=== PATIENT | female | born 1985 | race Caucasian/White ===

== ENCOUNTER 2018-09-12 11:08 | Emergency (ER) | payer OTHER ==
[~2018-09-12] VITALS: Ht 167.6 cm; Wt 105.1 kg
[~2018-09-12 11:08] MED LIST: GUAI473L22 PO; IBUP-1542 PO; NPH10OT LEFT EAR; PREN-39 PO; SODI126M NASAL
[2018-09-12 11:10] VITALS: BP 121/67; PULSE 88; RESP 18; Ht 167.6 cm; Wt 105.1 kg
[2018-09-12] MEDS ORDERED: NAPR-683 PO (13:01)
[2018-09-12] MEDS ORDERED: ACET-141 PO (13:01)
[2018-09-12] MEDS ORDERED: FLUT9.9S NASAL (13:01)
--- NOTE | 2018-09-12 13:15 | ERD ---
ER Documentation Chief Complaint Chief Complaint HEADACHE & NOSE PAIN X3 WKS HPI 32-year-old female presents for headache x3 weeks. She also states that she has nose pain. She has a history of nose injury and states that she was told that she may have nasal issues in the future. She does state that she has nasal stuffiness. She is currently taking saline nasal spray with mild relief. The headache is noted to be in the frontal right side, rated 8 out of 10, intermittent, described as a sharp sensation, nonradiating. She has had prior similar headaches in the past. She has been taking Aleve with mild relief. She denies fevers or chills. She does admit to nausea but no vomiting. Denies chest pain or shortness of breath. No significant past medical history. No other modifying factors noted, no other treatment tried at home. ROS All systems reviewed and are negative except as per history of present illness. Medications Home Meds Active Scripts Fluticasone Propionate (Flonase Allergy Relief) 9.9 Ml [place].susp, 1 SPRAY NASAL DAILY PRN for NASAL CONGESTION, #1 BOTTLE TO EACH NOSTRIL Prov:GALLO BUCKLEY DO 09/12/18 Acetaminophen* (Acetaminophen*) 500 MG Extra Strength Tablet, 500 MG PO Q4H PRN for PAIN AND OR ELEVATED TEMP, #30 TAB Prov:GALLO BUCKLEY DO 09/12/18 Naproxen* (Naproxen*) 250 Mg Tablet, 250 MG PO BID PRN for PAIN, #30 TAB Prov:GALLO BUCKLEY DO 09/12/18 Sodium Chloride (Saline Nasal Mist) 126 Ml Mist, 2 SPRAY NASAL Q2H PRN for NASAL CONGESTION, #1 BOTTLE Prov:ANN AMAYA NP 04/15/16 Guaifenesin-Codeine Phosphate* (Guaifenesin* AC Cough Syrup) 473 Ml Liquid, 10 ML PO Q4H PRN for COUGH, #120 ML Prov:ANN AMAYA NP 04/15/16 Sodium Chloride (Saline Nasal Mist) 126 Ml Mist, 2 SPRAY NASAL Q2H PRN for NASAL CONGESTION, #1 BOTTLE Prov:ANN AMAYA NP 04/15/16 Ibuprofen* (Ibuprofen*) 600 Mg Tablet, 600 MG PO Q6H PRN for pa, #30 TAB Prov:DOMENICA DONALDSON NP 02/26/15 Neomycin/Polymyxin/Hydrocort* (Cortisporin* Otic) 10 Ml Susp, 4 DROP LEFT EAR QID for 7 Days, EA Prov:DOMENICA DONALDSON ROGERS TDeidra CAVANAUGH 02/26/15 Reported Medications [none] Unknown Strength No Conflict Check 02/26/15 Vits W-Ca,Fe,Fa(<1MG) ( Vitamins) 1 Tab Tablet, 1 TAB PO DAILY 08/03/14 Allergies Allergies: Coded Allergies: No Known Allergy (Unverified , 04/15/16) PMhx/Soc History of Surgery: Yes (GALLBLADDER) Anesthesia Reaction: No Hx Neurological Disorder: No Hx Respiratory Disorders: No Hx Cardiac Disorders: No Hx Psychiatric Problems: No Hx Miscellaneous Medical Probl: No Hx Alcohol Use: No Hx Substance Use: No Hx Tobacco Use: No FmHx Family History: No coronary disease Physical Exam Vitals Vital Signs Date Temp Pulse Resp B/P (MAP) Pulse Ox O2 O2 Flow FiO2 Time Delivery Rate 09/12/18 98.2 88 18 121/67 96 11:10 (85) Physical Exam Const: No acute distress Head: Atraumatic, no temporal area tenderness to palpation there was some tenderness palpation of the right sinus area as well as the paranasal sinus Eyes: Normal Conjunctiva, pupils equal, round, reactive to light bilaterally ENT: Normal External Ears, bilateral tympanic membrane intact without erythema or bulging noted, Nose and Mouth examination normal. No tonsillar swelling or exudate noted Neck: Full range of motion. No meningismus, no bruits noted Resp: Clear to auscultation bilaterally Cardio: Regular rate and rhythm, no murmurs, bilateral radial and dorsalis pedis pulses intact Skin: No petechiae or rashes Ext: No cyanosis, or edema, 5 out of 5 muscular bilateral upper and lower extremities Neur: Awake and alert, bilateral upper and lower extremity sensation intact Psych: Normal Mood and Affect Procedures/MDM Medical Decision Making: Differential diagnosis includes but not limited to primary headache, subarachnoid hemorrhage, meningitis, temporal arteritis, glaucoma, hypertension, cerebral ischemia, carotid or vertebral arterial dissection, brain tumor. Patient appeared well on physical examination, nontoxic appearing. No history of fever. There is low suspicion for meningitis. Given no temporal area tenderness to palpation, low suspicion for temporal arteritis. Patient has no vision changes and pupils are reactive bilaterally, low suspicion for glaucoma. There is also no focal neurologic deficits to suggest a brain tumor. Patient has normal sensation and muscle strength, low suspicion for cerebral ischemia. Given tenderness palpation of the frontal sinuses and paranasal sinus there is a possibility that the patient has a sinus headache Patient given prescription for supportive medication(s). Patient advised to follow up with PCP in 1-2 days. Patient advised to return to ED for new or worsening symptoms. Patient stable on discharge from the ED. Disclaimer: Inadvertent spelling and grammatical errors are likely due to EHR/ dictation software use and do not reflect on the overall quality of patient care. Also, please note that the electronic time recorded on this note does not necessarily reflect the actual time of the patient encounter. Departure Diagnosis: Primary Impression: Headache Headache type: unspecified Headache chronicity pattern: unspecified pattern Intractability: not intractable Qualified Codes: R51 - Headache Additional Impression: Sinus pain Condition: Fair Patient Instructions: Sinus Headaches, Self-Care for Headaches Referrals: [facility] YOU HAVE RECEIVED A MEDICAL SCREENING EXAM AND THE RESULTS INDICATE THAT YOU DO NOT HAVE A CONDITION THAT REQUIRES URGENT TREATMENT IN THE EMERGENCY DEPARTMENT. FURTHER EVALUATION AND TREATMENT OF YOUR CONDITION CAN WAIT UNTIL YOU ARE SEEN IN YOUR DOCTORS OFFICE WITHIN THE NEXT 1-2 DAYS. IT IS YOUR RESPONSIBILITY TO MAKE AN APPOINTMENT FOR FOLOW-UP CARE. IF YOU HAVE A PRIMARY DOCTOR --you should call your primary doctor and schedule an appointment IF YOU DO NOT HAVE A PRIMARY DOCTOR YOU CAN CALL OUR PHYSICIAN REFERRAL HOTLINE AT IF YOU CAN NOT AFFORD TO SEE A PHYSICIAN YOU CAN CHOSE FROM THE FOLLOWING [facility] [address] [facility]. [facility] [address] [facility] [facility] [address] [facility]. [facility] [address] [facility] [address] [facility]. [facility]. [address] Additional Instructions: Call your primary care doctor TOMORROW for an appointment during the next 1-2 days.See the doctor sooner or return here if your condition worsens before your appointment time. GALLO BUCKLEY DO September 12, 2018 13:15
== END 2018-09-12 13:32 | disposition home or self-care (01) ==
LOC: FTE 11:08
DX: J34.89 Other specified disorders of nose and nasal sinuses (principal)
CPT/HCPCS: 99282

== ENCOUNTER 2019-01-01 11:12 | Emergency (ER) | payer OTHER ==
[~2019-01-01] VITALS: Wt 102.2 kg
[~2019-01-01 11:12] MED LIST changes: +ACET-141 PO; +BEN25 PO; +CEPH-443 PO; +FLUT9.9S NASAL; +MUPI15CR9 TOP; +NAPR-683 PO
[2019-01-01 13:28] VITALS: BP 118/70; PULSE 78; RESP 20
== END 2019-01-01 13:29 | disposition home or self-care (01) ==
LOC: FTE 11:12
DX: S90.562A Insect bite (nonvenomous), left ankle, initial encounter (principal); W57.XXXA Bitten or stung by nonvenomous insect and other nonvenomous arthropods, initial encounter; Y92.9 Unspecified place or not applicable
CPT/HCPCS: 99283